=== PATIENT | male | born 1980 | race Two or more races ===

== ENCOUNTER 2024-12-15 16:25 | Inpatient (IN) | payer BC ==
[~2024-12-15] VITALS: Ht 177.8 cm; Wt 110.7 kg
[2024-12-15 16:56] LABS: BASOPHILS % (AUTO) 0.6 % (0.0-2.0); EOSINOPHILS # (AUTO) 0.1 K/uL (0.0-0.7); EOSINOPHILS % (AUTO) 0.8 % (0.0-6.0); HEMATOCRIT 47 % (39-51); HEMOGLOBIN 16.2 g/dL (13.5-17.5); LYMPHOCYTES # (AUTO) 1.5 K/uL (0.8-4.8); LYMPHOCYTES % (AUTO) 21.9 % (20.0-44.0); MEAN CORPUSCULAR HEMOGLOBIN 31 PG (26.0-33.0); MEAN CORPUSCULAR HGB CONC 35 g/dl (31.0-36.0); MEAN CORPUSCULAR VOLUME 91 fL (80-96); MONOCYTES # (AUTO) 0.5 K/uL (0.1-1.30); MONOCYTES % (AUTO) 7.7 % (2.0-12.0); NEUTROPHILS # (AUTO) 4.6 K/uL (1.8-8.9); PLATELET COUNT (AUTO) 261 K/uL (150-450); RED BLOOD CELL COUNT(AUTO) 5.17 MIL/uL (4.5-6.0); RED CELL DISTRIBUTION WIDTH 13.8 % (11.5-15.0); WHITE BLOOD COUNT (AUTO) 6.7 K/uL (4.3-11.0)
[2024-12-15 17:05] LABS: CALCIUM, SERUM 9.6 mg/dL (8.5-10.1); CARBON DIOXIDE 29 mmol/L (21-32); CHLORIDE 105 mmol/L (98-107); GLUCOSE 114 mg/dL (74-106); POTASSIUM 3.8 mmol/L (3.5-5.1); SODIUM SERUM 142 mmol/L (136-145); UREA NITROGEN, BLOOD 16 mg/dL (7-18)
[2024-12-15 17:22] LABS: ALANINE AMINOTRANSFERASE 36 U/L (12-78); ALBUMIN 3.8 g/dL (3.4-5.0); ALKALINE PHOSPHATASE 91 U/L (46-116); ASPARTATE AMINOTRANSFERASE 20 U/L (15-37); BILIRUBIN,DIRECT 0.1 mg/dL (0.0-0.2); BILIRUBIN,TOTAL 0.3 mg/dL (0.2-1.0); NT-PRO BNP 838 pg/mL (0-125); TOTAL PROTEIN, SERUM 7.9 g/dL (6.4-8.2)
[2024-12-15] MEDS ORDERED: MORPHINE SULFATE INJ 2 MG/ML DISP.SYRIN ONE (17:28)
[2024-12-15] MEDS ORDERED: ASPIRIN 325 MG TABLET ONE (17:28)
[2024-12-15] MEDS: MORPHINE SULFATE INJ 2 MG/ML DISP.SYRIN IV ONE ×2 (17:34→18:38)
[2024-12-15] MEDS: ASPIRIN 325 MG TABLET PO ONE (17:34)
[2024-12-15] MEDS ORDERED: MORPHINE SULFATE INJ 4 MG/ML DISP.SYRIN ONE (18:36)
[2024-12-15] MEDS ORDERED: MAG HYDROX/AL HYDROX/SIMETH 30 ML UDC PO PRN (21:00)
[2024-12-15] MEDS ORDERED: ENOXAPARIN SODIUM 30 MG/0.3 ML DISP.SYRIN SQ SCH ×2 (21:00→22:30)
[2024-12-15] MEDS ORDERED: MAGNESIUM HYDROXIDE 30 ML UDC PO PRN (21:00)
[2024-12-15] MEDS ORDERED: ONDANSETRON HCL/PF 4 MG/2 ML VIAL IVP PRN (21:00)
[2024-12-15 21:45] VITALS: BP 147/100; TEMP 98.2; O2SAT 100
[2024-12-15] MEDS ORDERED: TAMS-12 PO (21:52)
[2024-12-15] MEDS: MORPHINE SULFATE INJ 4 MG/ML DISP.SYRIN IV ONE (22:05)
[2024-12-15] MEDS: ENOXAPARIN SODIUM 100 MG/ML DISP.SYRIN SQ ONE (22:19)
[2024-12-15 22:36] LABS: INR 0.97 (0.91-1.10); PROTHROMBIN TIME 10.3 SECS (9.2-11.1)
[2024-12-16] VITALS: BP 141/93; TEMP 98.1; O2SAT 98
[2024-12-16 04:19] VITALS: BP 153/94; TEMP 98.2; O2SAT 96
[2024-12-16 07:04] LABS: CALCIUM, SERUM 9.3 mg/dL (8.5-10.1); CREATININE 0.7 mg/dL (0.6-1.3); PHOSPHORUS 3.1 mg/dL (2.5-4.9); POTASSIUM 3.6 mmol/L (3.5-5.1)
[2024-12-16 07:07] LABS: BASOPHILS % (AUTO) 0.2 % (0.0-2.0); HEMATOCRIT 46 % (39-51); HEMOGLOBIN 16.3 g/dL (13.5-17.5); LYMPHOCYTES # (AUTO) 0.9 K/uL (0.8-4.8); MEAN CORPUSCULAR HEMOGLOBIN 32 PG (26.0-33.0); MEAN CORPUSCULAR HGB CONC 35 g/dl (31.0-36.0); MEAN CORPUSCULAR VOLUME 91 fL (80-96); MONOCYTES # (AUTO) 0.6 K/uL (0.1-1.30); MONOCYTES % (AUTO) 7.1 % (2.0-12.0); NEUTROPHILS # (AUTO) 6.6 K/uL (1.8-8.9); NEUTROPHILS % (AUTO) 81.7 % (43.0-81.0); PLATELET COUNT (AUTO) 256 K/uL (150-450); RED CELL DISTRIBUTION WIDTH 13.7 % (11.5-15.0); WHITE BLOOD COUNT (AUTO) 8.1 K/uL (4.3-11.0)
[2024-12-16 07:30] LABS: THYROID STIMULATING HORMONE 0.91 uIU/mL (0.358-3.74)
[2024-12-16] MEDS: PANTOPRAZOLE 40 MG VIAL IV SCH (08:28)
[2024-12-16] MEDS: TAMSULOSIN 0.4 MG CAP.SR.24H PO SCH (08:28)
[2024-12-16] MEDS: ASPIRIN 81 MG TAB.CHEW PO SCH (08:28)
[2024-12-16] MEDS: ENOXAPARIN SODIUM 120 MG/0.8 ML DISP.SYRIN SQ SCH (08:29)
[2024-12-16] MEDS: ATORVASTATIN 40 MG TABLET PO SCH (08:59)
[2024-12-16] MEDS: VALSARTAN 80 MG TABLET PO SCH (09:00)
[2024-12-16] MEDS: NITROGLYCERIN 30 GM TUBE TP SCH (09:43)
[2024-12-16] MEDS: MORPHINE SULFATE INJ 4 MG/ML DISP.SYRIN IV PRN (10:27)
[2024-12-16] MEDS ORDERED: CT SWABBABLE VALVE TRANS SET 1 EA INFUS.SET MC ONE (10:48)
[2024-12-16] MEDS ORDERED: IOHEXOL-350 100 ML VIAL IV ONE (10:48)
[2024-12-16] MEDS ORDERED: IV NS 0.9% 250 ML IV ONE (10:48)
[2024-12-16 16:00] VITALS: BP 117/71; TEMP 98.4; O2SAT 96
[2024-12-16 20:00] VITALS: BP 114/68; TEMP 98.4; O2SAT 97
[2024-12-16] MEDS: ACETAMINOPHEN 325 MG TABLET PO PRN (20:53)
[2024-12-17] VITALS: BP 107/63; TEMP 98.2; O2SAT 97
[2024-12-17 04:00] VITALS: BP 107/75; TEMP 98.8; O2SAT 95
[2024-12-17 07:00] LABS: BASOPHILS % (AUTO) 0.2 % (0.0-2.0); HEMATOCRIT 47 % (39-51); HEMOGLOBIN 16.9 g/dL (13.5-17.5); LYMPHOCYTES # (AUTO) 0.8 K/uL (0.8-4.8); LYMPHOCYTES % (AUTO) 8.1 % (20.0-44.0); MEAN CORPUSCULAR HEMOGLOBIN 32 PG (26.0-33.0); MEAN CORPUSCULAR HGB CONC 36 g/dl (31.0-36.0); MEAN CORPUSCULAR VOLUME 91 fL (80-96); MONOCYTES # (AUTO) 0.9 K/uL (0.1-1.30); NEUTROPHILS # (AUTO) 8.3 K/uL (1.8-8.9); NEUTROPHILS % (AUTO) 82.7 % (43.0-81.0); PLATELET COUNT (AUTO) 255 K/uL (150-450); RED BLOOD CELL COUNT(AUTO) 5.23 MIL/uL (4.5-6.0); RED CELL DISTRIBUTION WIDTH 13.6 % (11.5-15.0)
[2024-12-17 07:09] LABS: ALANINE AMINOTRANSFERASE 50 U/L (12-78); ALBUMIN 3.7 g/dL (3.4-5.0); ALKALINE PHOSPHATASE 87 U/L (46-116); ASPARTATE AMINOTRANSFERASE 180 U/L (15-37); CALCIUM, SERUM 9.3 mg/dL (8.5-10.1); CARBON DIOXIDE 23 mmol/L (21-32); CHLORIDE 101 mmol/L (98-107); CREATININE 0.8 mg/dL (0.6-1.3); GLUCOSE 128 mg/dL (74-106); PHOSPHORUS 2.8 mg/dL (2.5-4.9); POTASSIUM 3.5 mmol/L (3.5-5.1); SODIUM SERUM 135 mmol/L (136-145); TOTAL PROTEIN, SERUM 8.1 g/dL (6.4-8.2); UREA NITROGEN, BLOOD 13 mg/dL (7-18)
[2024-12-17 07:30] VITALS: BP 120/85; TEMP 98.1; O2SAT 97
[2024-12-17 21:38] VITALS: BP 127/89; TEMP 97.5; O2SAT 96
[2024-12-18] VITALS: BP 116/83; TEMP 98.2; O2SAT 96
[2024-12-18 00:06] VITALS: BP 116/83; TEMP 98.2; O2SAT 96
[2024-12-18 04:00] VITALS: BP 119/74; TEMP 98.1; O2SAT 96
[2024-12-18 04:44] VITALS: BP 119/74; TEMP 98.1; O2SAT 96
[2024-12-18 07:30] VITALS: BP 119/82; TEMP 97.7; O2SAT 96
[2024-12-18] MEDS ORDERED: VALS80TA31 PO ×2 (08:57→12:10)
[2024-12-18] MEDS ORDERED: TICA90TA PO ×2 (08:57→12:10)
[2024-12-18] MEDS ORDERED: ASPI-1169 PO ×2 (08:57→12:10)
[2024-12-18] MEDS ORDERED: ATOR40TA PO ×2 (08:57→12:10)
[2024-12-18 09:19] VITALS: BP 119/82
[2024-12-18] MEDS: TICAGRELOR 90 MG TABLET PO SCH (09:22)
== END 2024-12-18 13:15 | disposition home or self-care (01) | DRG 322 ==
LOC: ER 16:25 → TELE 20:58
PROVIDERS: ATTEND Student in an Organized Health Care Education/Training Program
PROC: 027034Z Dilation of Coronary Artery, One Artery with Drug-eluting Intraluminal Device, Percutaneous Approach (ICD-10-PCS; principal; 2024-12-17)
PROC: 4A023N7 Measurement of Cardiac Sampling and Pressure, Left Heart, Percutaneous Approach (ICD-10-PCS; 2024-12-17)
PROC: B211YZZ Fluoroscopy of Multiple Coronary Arteries using Other Contrast (ICD-10-PCS; 2024-12-17)
DX: I21.4 Non-ST elevation (NSTEMI) myocardial infarction (principal); E66.9 Obesity, unspecified; N40.0 Benign prostatic hyperplasia without lower urinary tract symptoms; I10 Essential (primary) hypertension; Z79.82 Long term (current) use of aspirin; Z95.5 Presence of coronary angioplasty implant and graft; Z68.35 Body mass index [BMI] 35.0-35.9, adult
CPT/HCPCS: 36415; 71045-TC; 75574; 80048-TC; 80053-TC; 80061-TC; 80076-TC; 83735-TC; 83880; 84100-TC; 84443-TC; 84484-TC; 85025-TC; 85610-TC; 85730-TC; 93307-TC; G0378; J1650; J2270; J2470; J7050; Q9967